=== PATIENT | female | born 1965 | race Caucasian/White ===

== ENCOUNTER 2020-07-27 07:46 | Emergency (ER) | payer OTHER, BC ==
[~2020-07-27] VITALS: Ht 165.1 cm; Wt 68.0 kg
[2020-07-27 07:46] VITALS: BP_SYST 116
[2020-07-27] MEDS ORDERED: LORazepam 1 MG TABLET PO ONE (08:00)
[2020-07-27] MEDS ORDERED: IBUPROFEN 600 MG TABLET PO ONE (08:00)
[2020-07-27] MEDS ORDERED: SOM350 PO (08:55)
[2020-07-27] MEDS ORDERED: TRAM50TA PO (08:55)
[2020-07-27] MEDS ORDERED: NAPR-688 PO (08:55)
[2020-07-27 09:08] VITALS: BP_SYST 124
== END 2020-07-27 09:08 | disposition home or self-care (01) ==
LOC: SED 07:46
DX: S16.1XXA Strain of muscle, fascia and tendon at neck level, initial encounter (principal); S20.219A Contusion of unspecified front wall of thorax, initial encounter; S09.90XA Unspecified injury of head, initial encounter; Z79.899 Other long term (current) drug therapy; V49.49XA Driver injured in collision with other motor vehicles in traffic accident, initial encounter; Y93.89 Activity, other specified; Y92.89 Other specified places as the place of occurrence of the external cause; Y99.8 Other external cause status
CPT/HCPCS: 70450-TC; 71045; 72125-TC; 76376; 93005; 99285